=== PATIENT | male | born 1965 | race Caucasian/White ===

== ENCOUNTER 2023-01-03 09:22 | Emergency (ER) | payer OTHER ==
[~2023-01-03] VITALS: Ht 175.3 cm; Wt 91.0 kg
[2023-01-03] MEDS ORDERED: BALANCED SALT IRRIG SOLN 15ML IR ONE (10:45)
[2023-01-03] MEDS ORDERED: FLUORESCEIN SODIUM 1MG/STRIP LEFTEYE ONE (10:45)
[2023-01-03] MEDS ORDERED: TETRACAINE 0.5% OPHTH DROPS 4ML LEFTEYE ONE (10:45)
[2023-01-03 13:54] VITALS: BP 125/84
== END 2023-01-03 13:55 | disposition home or self-care (01) ==
LOC: ER 09:22
DX: H10.33 Unspecified acute conjunctivitis, bilateral (principal); T15.11XA Foreign body in conjunctival sac, right eye, initial encounter; X58.XXXA Exposure to other specified factors, initial encounter; Y93.9 Activity, unspecified; Y92.9 Unspecified place or not applicable
CPT/HCPCS: 99283

== ENCOUNTER 2025-07-15 18:51 | Emergency (ER) | payer OTHER ==
[~2025-07-15] VITALS: Ht 172.7 cm; Wt 80.0 kg
[2025-07-15 18:52] VITALS: O2SAT 97
[2025-07-15 19:01] VITALS: BP 149/89; PULSE 70; RESP 16; TEMP 36.7; O2SAT 100
[2025-07-15] MEDS ORDERED: OCUFLX RIGHTEYE (21:30)
[2025-07-15] MEDS: TETRACAINE 0.5% OPHTH DROPS 4ML BOTHEYE ONE (21:38)
[2025-07-15] MEDS: FLUORESCEIN SODIUM 1MG/STRIP BOTHEYE ONE (21:38)
== END 2025-07-15 22:00 | disposition home or self-care (01) ==
LOC: ER 18:51
DX: H57.11 Ocular pain, right eye (principal); I10 Essential (primary) hypertension
CPT/HCPCS: 99283